=== PATIENT | male | born 1965 | race Caucasian/White ===

== ENCOUNTER 2023-06-25 23:56 | Emergency (ER) | payer BC, SELFPAY ==
[2023-06-25 23:58] VITALS: BP 165/100
[2023-06-26 01:47] VITALS: BP 155/88
[2023-06-26 01:48] VITALS: BMI 34.6
--- NOTE | 2023-06-26 02:01 | ED.GENMED ---
History of Present Illness
General
Chief Complaint: Back Pain
Source: patient
Exam Limitations: none
Time Seen by Provider: 06/26/23 01:51
Nursing documentation reviewed up to this point in time: agreed with
Travel History
Have you had any contact with someone who has COVID-19?: No
Do you have any symptoms of coronavirus? Fever > 100 degrees, chills, cough, shortness of breath, sore throat, loss of taste or smell, muscle aches, or headache?: No
History of Present Illness
History of Present Illness:
Pleasant 57-year-old male who presents with low back pain that does not radiate. He states that 1 week ago he tweaked his back while reaching for something. Today the pain was worse. Patient denies bowel or bladder retention or incontinence. He
reports no difficulty walking. He did try Flexeril which took the edge off. He states that he initially injured his back, stepping off a curb without realizing he was stepping off the curb. He 'jammed his back '. Denies fever, chills, nausea or
vomiting. Denies any urinary symptoms.
Past History
Past History
ED Past Medical History: None; Negative Asthma, HTN, Hypercholesterolemia or NIDDM
ED Past Surgical History: None
Social History
Tobacco: Non-smoker
Alcohol: Occasional
Personal: Other (Seperated)
Living: with family
Review of Systems
Review of Systems
Allergies reviewed?: Yes
All Other Systems: ROS reviewed and negative except as documented in HPI and ROS
Constitutional: Reports no symptoms
EENT: Reports no symptoms
Respiratory: Reports no symptoms
Cardiac: Reports no symptoms
ABD/GI: Reports no symptoms
: Reports no symptoms
Musculoskeletal: Reports muscle pain, muscle stiffness and back pain
Skin: Reports no symptoms
Neurological: Reports no symptoms
Endocrine: Reports no symptoms
Hematologic/Lymphatic: Reports no symptoms
Psychiatric: Reports no symptoms
Phy Exam
General Physical Exam
General Presentation: moderate distress
General age: appears stated age
General Skin: warm and dry
General Habitus: normal
General Mental: alert
General Hydration: appears well hydrated
ENT Exam
ENT Exam: EOMI, pharynx normal, neck supple and normocephalic
Eye Exam
Eye Exam: PERRL, cornea clear and conjunctiva normal
Cardiovascular Exam
Cardiovascular Exam: regular rate/rhythm, no edema, no murmur and normal peripheral pulses
Pulmonary Exam
Pulmonary Exam: lungs clear, no respiratory distress, no rales, no crackles, no rhonchi, no stridor, no wheezing and no cough
Neurological Exam
Neurological Exam: alert, oriented x3, no motor deficits and speech normal
Musculoskeletal Exam
Musculoskeletal Exam: back tenderness, neuro vasc intact and other (Negative straight leg raising test bilaterally)
Skin Exam
Skin Exam: normal color, warm/dry, no rash and no petechia
Psychiatric Exam
Psychiatric Exam: normal mood/affect
Course
Orders/Labs/Results
Orders:
Orders
06/26/23 02:00
Diazepam [Valium] 5 mg PO NOW STA
Ketorolac [Toradol] 30 mg IM NOW STA
06/26/23 02:07
Lumbar Spine Complete, 4 View [CR Lumbar Spine Comp Min 4 Vw*] Urgent
Comment:
Reason For Exam: lbp
Vital Signs
Initial and Last Documented VS:
Initial Vital Signs
Temp Pulse Resp BP Pulse Ox
97.6 F 80 24 165/100 100
06/25/23 23:58 06/25/23 23:58 06/25/23 23:58 06/25/23 23:58 06/25/23 23:58
Last Documented Vital Signs
Temp Pulse Resp BP Pulse Ox
97.6 F 65 18 156/80 93
06/25/23 23:58 06/26/23 05:02 06/26/23 02:50 06/26/23 05:00 06/26/23 05:00
*Critical Care Note
Total Time (30-74mins, 75-104mins- exclusive of procedures): Not Applicable
Update Note
Update Note:
Patient up and walking around. He states that his pain is greatly improved. Will be discharged home in improved condition.
ED Attending Note
-
Portions of this chart may have been created with voice recognition software.� Occasional wrong word or��sound alike� substitutions may have occurred due to the inherent limitations of voice recognition software.
Discharge Plan
Departure
Patient Disposition: Home (Routine Discharge)
Date of Disposition: 06/26/23
Time of Disposition: 05:39
Patient with high blood pressure during this ER visit?: Yes
Discharge Problem:
Low back pain
Instructions: Low Back Pain (DC), BLOOD PRESSURE
Prescriptions:
New
diazepam [Valium] 5 mg tablet
5 mg PO BID PRN (Reason: muscle spasm) Qty: 7 0RF
diclofenac sodium 75 mg tablet,delayed release (DR/EC)
75 mg PO BID Qty: 10 0RF
No Action
loratadine 10 MG tablet
10 mg PO DAILY
cyclobenzaprine [Flexeril] 5 mg Tablet
5 mg PO HS PRN (Reason: pain)
naproxen sodium [Aleve] 220 mg Capsule
220 mg PO BID PRN (Reason: pain)
Referrals:
Samina Maldonado DO [Family Provider] -
Interventions
Interventions:
*Risk Screen - Suicide Last Done: 06/25/23 23:58
*General Assessment Last Done: 06/26/23 01:42
*Neglect/Abuse Screening Last Done: 06/25/23 23:58
ED- Fall Risk Assessment Last Done: 06/26/23 00:50
*ED COVID-19 Vaccine History Last Done: 06/26/23 01:42
*Nursing Disposition Last Done: 06/26/23 05:42
ED-Musculoskeletal Assessment Last Done: 06/26/23 03:01
Discharge Date and Time
Print Language: BULGARIAN
[2023-06-26] MEDS: VALIUM 5 MG PO (02:14)
[2023-06-26] MEDS: TORADOL 30 MG IM (02:14)
[2023-06-26 02:38] VITALS: BP 149/96
[2023-06-26 02:50] VITALS: BP 149/96
[2023-06-26 03:56] VITALS: BP 152/94
[2023-06-26 04:00] VITALS: BP 167/94
[2023-06-26 05:00] VITALS: BP 156/80
== END 2023-06-26 05:42 | disposition home or self-care (01) ==
LOC: EMR 23:56
PROVIDERS: EMERGENCY PHYSICIAN Student in an Organized Health Care Education/Training Program; FAMILY PHYSICIAN Family Medicine
DX: M54.50 Low back pain, unspecified (principal); R03.0 Elevated blood-pressure reading, without diagnosis of hypertension
CPT/HCPCS: 99284; 96372; 72110